=== PATIENT | female | born 1970 | race Caucasian/White ===

== ENCOUNTER 2024-01-29 09:09 | Emergency (ER) | payer BC, SELFPAY ==
[2024-01-29 09:11] VITALS: BP 137/80
[2024-01-29 10:25] LABS: % Basophils 0.4 % (0-2); % Eosinophils 2.2 % (0-6); % Immature Granulocytes 0.5 % (0-0.5); % Lymphocytes 24.2 % (20.5-51.1); % Neutrophils 67.7 % (42.2-75.2); Absolute Eosinophils 0.2 10^3/uL (0-0.7); Absolute Lymphocytes 2.1 10^3/uL (1.2-3.4); Absolute Monocytes 0.4 10^3/uL (0.1-0.6); Absolute Neutrophils 5.8 10^3/uL (1.4-6.5); Hematocrit 37.9 % (37.0-47.0); Hemoglobin 12.9 g/dL (12.0-16.0); Mean Corpuscular Hgb 30.9 pg (27.0-31.0); Mean Corpuscular Volume 90.9 fL (81.0-99.0); Mean Platelet Volume 8.8 fL (7.4-10.4); Nucleated Red Blood Cells % 0 %; Platelet Count 249 10^3/uL (130-400); Red Blood Cell Count 4.17 10^6/uL (4.20-5.40); Red Cell Dist. Width 12.7 % (11.5-14.5); White Blood Cell Count 8.5 10^3/uL (4.8-10.8)
--- NOTE | 2024-01-29 10:25 | ED.GENMED ---
History of Present Illness
<AMBER Barney - Last Filed: 01/29/24 15:28>
General
Chief Complaint: Abdominal Symptoms
Source: patient
Exam Limitations: none
Time Seen by Provider: 01/29/24 09:57
Nursing documentation reviewed up to this point in time: agreed with
Travel History
Have you had any contact with someone who has COVID-19?: No
Do you have any symptoms of coronavirus? Fever > 100 degrees, chills, cough, shortness of breath, sore throat, loss of taste or smell, muscle aches, or headache?: No
History of Present Illness
History of Present Illness:
Patient is a 53-year-old female with past medical history of appendectomy, diverticulitis with perforation hypertension hyperlipidemia who presents to the ER complaining of right-sided upper and mid abdominal discomfort since Friday, 3 days ago.
She reports for the past 2 days it has been constant. She denies any nausea vomiting diarrhea. She denies any radiation of pain. She denies any associated fevers.
Past History
<AMBER Barney - Last Filed: 01/29/24 15:28>
Past History
ED Past Medical History: HTN and Hypercholesterolemia
ED Past Surgical History:
Social History
Tobacco: Former smoker
Alcohol: Occasional
Drug: None
Personal:
Living: with family
Review of Systems
<AMBER Barney - Last Filed: 01/29/24 15:28>
Review of Systems
Allergies reviewed?: Yes
All Other Systems: ROS reviewed and negative except as documented in HPI and ROS
Constitutional: Reports no symptoms; Denies fever, fatigue or chills
Respiratory: Reports no symptoms
Cardiac: Reports no symptoms
ABD/GI: Reports abdominal pain; Denies nausea, vomiting or diarrhea
: Reports no symptoms; Denies flank pain, urgency or discharge
Musculoskeletal: Reports no symptoms
Skin: Reports no symptoms
Neurological: Reports no symptoms
Psychiatric: Reports no symptoms
Phy Exam
<AMBER Barney - Last Filed: 01/29/24 15:28>
General Physical Exam
General Presentation: no apparent distress
General age: appears stated age
General Skin: warm and dry
General Habitus: normal
General Mental: alert
General Hydration: appears well hydrated
Gastrointestinal Exam
Gastrointestinal Exam: soft and other (RUQ tenderness )
Neurological Exam
Neurological Exam: alert and oriented x3
[place] Coma Scale
Eye Opening: Spontaneous
Verbal Response: Oriented
Motor Response: Obeys Commands
GCS Total Score: 15
Musculoskeletal Exam
Musculoskeletal Exam: full ROM
Skin Exam
Skin Exam: normal color and warm/dry
Psychiatric Exam
Psychiatric Exam: normal mood/affect
<Derrick Lunsford DO - Last Filed: 01/29/24 13:01>
[place] Coma Scale
GCS Total Score: 15
Course
<AMBER Barney - Last Filed: 01/29/24 15:28>
Orders/Labs/Results
Orders:
Orders
01/29/24 09:58
IV Insert/Care/Rem.- Treatment PRN
01/29/24 09:59
US Abdomen Complete/Upper Urgent
Comment:
Reason For Exam: ruq pain
01/29/24 10:16
Complete Blood Count/With Diff Urgent
Comprehensive Metabolic Panel Urgent
Lipase Urgent
01/29/24 10:27
IV Insert/Care/Rem.- Treatment PRN
0.9% Sodium Chloride 1000 ml [Nss] 1,000 ml IV BOLUS
01/29/24 13:01
CT Abd/pelvis W Iv Cont Urgent
Comment:
Reason For Exam: right side abd pain 2 d, hx divertic, prior appy
Abnormal Lab Results
01/29/24
10:16
RBC 4.17 L 10^6/uL
(4.20-5.40)
Glucose 109 H mg/dl
(70-99)
AST 48 H U/L
(14-36)
ALT 59 H U/L
(0-35)
01/29/24 10:16
01/29/24 14:00
Vital Signs
Initial and Last Documented VS:
Initial Vital Signs
Temp Pulse Resp BP Pulse Ox
98.3 F 74 18 137/80 98
01/29/24 09:11 01/29/24 09:11 01/29/24 09:11 01/29/24 09:11 01/29/24 09:11
Last Documented Vital Signs
Temp Pulse Resp BP Pulse Ox
98.3 F 74 18 135/91 95
01/29/24 09:11 01/29/24 09:11 01/29/24 09:11 01/29/24 15:00 01/29/24 15:00
<Derrick Lunsford, DO - Last Filed: 01/29/24 13:01>
Orders/Labs/Results
Orders:
Orders
01/29/24 09:58
IV Insert/Care/Rem.- Treatment PRN
01/29/24 09:59
US Abdomen Complete/Upper Urgent
Comment:
Reason For Exam: ruq pain
01/29/24 10:16
Complete Blood Count/With Diff Urgent
Comprehensive Metabolic Panel Urgent
Lipase Urgent
01/29/24 10:27
IV Insert/Care/Rem.- Treatment PRN
0.9% Sodium Chloride 1000 ml [Nss] 1,000 ml IV BOLUS
01/29/24 13:01
CT Abd/pelvis W Iv Cont Urgent
Comment:
Reason For Exam: right side abd pain 2 d, hx divertic, prior appy
Abnormal Lab Results
01/29/24
10:16
RBC 4.17 L 10^6/uL
(4.20-5.40)
Glucose 109 H mg/dl
(70-99)
AST 48 H U/L
(14-36)
ALT 59 H U/L
(0-35)
01/29/24 10:16
01/29/24 14:00
Vital Signs
Initial and Last Documented VS:
Initial Vital Signs
Temp Pulse Resp BP Pulse Ox
98.3 F 74 18 137/80 98
01/29/24 09:11 01/29/24 09:11 01/29/24 09:11 01/29/24 09:11 01/29/24 09:11
Last Documented Vital Signs
Temp Pulse Resp BP Pulse Ox
98.3 F 74 18 135/91 95
01/29/24 09:11 01/29/24 09:11 01/29/24 09:11 01/29/24 15:00 01/29/24 15:00
<AMBER Barney - Last Filed: 01/29/24 15:28>
MDM/Problems Addressed
Differential Diagnosis Includes:
Not limited to biliary colic, less likely diverticulitis, muscular pain, reflux GERD
MDM/Problems Addressed:
CAT scan shows: Epiploic appendagitis involving the proximal transverse colon and the anterior right mid to upper abdomen. This is the site of patient's pain. She is stable well-appearing in no acute distress looks well. I did review with
patient this is self-limiting. She is stable for d/c home with nsaids /tylenol. d/c f/u w/ pcp in 2 d
<AMBER Barney - Last Filed: 01/29/24 15:28>
*Radiology
Radiology exam reviewed: radiology read reviewed
*Pulse Oximetry
Patient hypoxic: no
*Critical Care Note
Total Time (30-74mins, 75-104mins- exclusive of procedures): Not Applicable
ED Attending Note
<AMBER Barney - Last Filed: 01/29/24 15:28>
-
Portions of this chart may have been created with voice recognition software.� Occasional wrong word or��sound alike� substitutions may have occurred due to the inherent limitations of voice recognition software.
<Derrick Lunsford DO - Last Filed: 01/29/24 13:01>
ED Attending Note
Patient seen and examined by attending physician: Yes
ED Attending Note:
I have reviewed and agree with patient treatment plan by Sherlyn Santillan. My exam revealed 53-year-old female with right upper quadrant tenderness, no rebound or guarding. Ultrasound no acute findings. Will check CT scan to rule out
diverticulitis.
Discharge Plan
Departure
Patient Disposition: Home (Routine Discharge)
Date of Disposition: 01/29/24
Time of Disposition: 15:23
Patient with high blood pressure during this ER visit?: Yes
Covid-19: Not Applicable
Discharge Problem:
Epiploic appendagitis
Instructions: BLOOD PRESSURE
Prescriptions:
No Action
atorvastatin 10 MG tablet
10 mg PO DAILY
docosahexaenoic acid-epa 1 CAP capsule
1 cap PO DAILY
lisinopril 20 mg tablet
20 mg PO DAILY
estradiol 0.01 % (0.1 mg/gram) Cream
1 appful VAGINAL .2X WEEKLY
cranberry 500 mg Capsule
500 mg PO DAILY
calcium carbonate-vitamin D3 500 mg-3.125 mcg (125 unit) Tablet
1 tab PO DAILY
amoxicillin-pot clavulanate [amoxicillin-pot clavulanate] 875-125 mg tablet
1 tab PO Q12 Qty: 14 0RF
oxycodone 5 mg tablet
5 - 10 mg PO Q4HPRN PRN (Reason: moderate to severe pain) Qty: 16 0RF
Referrals:
Maxx Gomez MD [Family Provider] -
Activity Restrictions/Additional Instructions:
Symptoms are consistent with epiploic appendagitis: You may alternate between ibuprofen and Tylenol for symptoms. Follow-up with your family doctor in the next several days for reevaluation.
return if any worsening of symptoms.
Interventions
Interventions:
*Risk Screen - Suicide Last Done: 01/29/24 11:27
*General Assessment Last Done: 01/29/24 10:05
*Neglect/Abuse Screening Last Done: 01/29/24 11:27
ED- Fall Risk Assessment Last Done: 01/29/24 11:27
*ED COVID-19 Vaccine History Last Done: 01/29/24 09:18
GJ-Bwbxcx-Mzzziumrzt Assessment Last Done: 01/29/24 11:27
[2024-01-29 10:39] LABS: ALT (SGPT) 59 U/L (0-35); AST (SGOT) 48 U/L (14-36); Albumin 4.3 g/dl (3.5-5.0); Alkaline Phosphatase 76 U/L (38-126); Blood Urea Nitrogen 13 mg/dl (7-17); Calcium 9.8 mg/dl (8.4-10.2); Carbon Dioxide 30 mmol/L (22-30); Chloride 102 mmol/L (98-107); Glucose 109 mg/dl (70-99); Lipase 105 U/L (23-300); Potassium 3.5 mmol/L (3.5-5.1); Sodium 138 mmol/L (135-145); Total Bilirubin 0.7 mg/dl (0.2-1.3); Total Protein 7.2 g/dl (6.3-8.2); eGFR > 60.00
[2024-01-29 11:28] VITALS: BP 156/87
[2024-01-29] MEDS: NSS 1000 IV (11:34)
[2024-01-29 12:00] VITALS: BP 148/74
[2024-01-29 13:11] VITALS: BP 147/92
[2024-01-29 14:55] VITALS: BP 140/84
[2024-01-29 15:00] VITALS: BP 135/91
== END 2024-01-29 15:54 | disposition home or self-care (01) ==
LOC: EMR 09:09
PROVIDERS: Nurse Practitioner; EMERGENCY PHYSICIAN Emergency Medicine; FAMILY PHYSICIAN Family Medicine
DX: K63.89 Other specified diseases of intestine (principal); R10.11 Right upper quadrant pain; I10 Essential (primary) hypertension; E78.00 Pure hypercholesterolemia, unspecified; Z87.891 Personal history of nicotine dependence
CPT/HCPCS: 99284; 96360; 74177; 76700; 80053; 83690; 85025; Q9967

== ENCOUNTER → 2024-02-19 12:54 | Outpatient (REF) | payer BC, SELFPAY | LOC: HWWDC 12:54 | PROVIDERS: ATTENDING PHYSICIAN Obstetrics & Gynecology Gynecology; FAMILY PHYSICIAN Family Medicine | DX: Z12.31 Encounter for screening mammogram for malignant neoplasm of breast (principal) | CPT/HCPCS: 77063; 77067 ==

== ENCOUNTER → 2024-03-02 14:25 | Outpatient (REF) | payer BC, SELFPAY | LOC: HWRAD 14:25 | PROVIDERS: ATTENDING PHYSICIAN Family Medicine | DX: Z13.820 Encounter for screening for osteoporosis (principal) | CPT/HCPCS: 77080 ==

== ENCOUNTER 2024-11-22 06:25 | Day surgery (SDC) | payer OTHER, SELFPAY | END 2024-11-22 14:43 | disposition home or self-care (01) | LOC: GI 06:25 | PROVIDERS: ATTENDING PHYSICIAN Internal Medicine Gastroenterology; FAMILY PHYSICIAN Internal Medicine | DX: K63.5 Polyp of colon (principal); K57.30 Diverticulosis of large intestine without perforation or abscess without bleeding; Q43.8 Other specified congenital malformations of intestine; Z86.0101 Personal history of adenomatous and serrated colon polyps | CPT/HCPCS: 45380; 88305 ==